=== PATIENT | male | born 1960 | race Caucasian/White ===

== ENCOUNTER 2018-08-19 16:00 | Emergency (ER) | payer BC ==
[2018-08-19 16:24] VITALS: BP 127/88
[2018-08-19] MEDS ORDERED: Tetan/Diph/Pertus SYR(Tdap)* 0.5 ML SYR(BOOSTRIX) use SYR IM ONE (16:28)
--- NOTE | 2018-08-19 16:39 | UC ---
Upper Extremity HPI - HPI Summary HPI Summary: cut right thumb on miter saw. last tetanus vaccine about 5 years ago. - History of Current Complaint Chief Complaint: UCUpperExtremity Stated Complaint: RT HAND/THUMB LAC Time Seen by Provider: 08/19/18 16:21 ?: No Onset/Duration: Sudden Onset Severity Initially: Moderate Severity Currently: Moderate Pain Intensity: 3 Alleviating Factor(s): Nothing Associated Signs And Symptoms: Positive: Negative - Risk Factors Non-Orthopedic Risk Factor: Negative DVT Risk Factors: Negative Septic Arthritis Risk Factor: Negative - Allergies/Home Medications Allergies/Adverse Reactions: Allergies Allergy/AdvReac Type Severity Reaction Status Date / Time No Known Allergies Allergy Verified 08/19/18 16:20 Home Medications: Home Medications Lisdexamfetamine Dimesylate [Vyvanse] 1 tab DAILY 08/19/18 [History Confirmed ] PMH/Surg Hx/FS Hx/Imm Hx Previously Healthy: Yes - Surgical History Surgical History: None - Social History Alcohol Use: Weekly Substance Use Type: None Smoking Status (MU): Never Smoked Tobacco - Immunization History Most Recent Tetanus Shot: UTD Review of Systems Constitutional: Negative Skin: Negative Eyes: Negative ENT: Negative Respiratory: Negative Cardiovascular: Negative Gastrointestinal: Negative Genitourinary: Negative Is Patient Immunocompromised?: No All Other Systems Reviewed And Are Negative: Yes Physical Exam Triage Information Reviewed: Yes Appearance: Well-Appearing Vital Signs: Initial Vital Signs Temp 36.6 C 08/19/18 16:20 Pulse 76 08/19/18 16:20 Resp 16 08/19/18 16:20 BP 127/88 08/19/18 16:20 Pulse Ox 99 08/19/18 16:20 Vital Signs Reviewed: Yes Eye Exam: Normal ENT Exam: Normal Neck exam: Normal Neck: Positive: Supple Skin: Positive: Other - superficial laceration of the right thumb - Additional Comments extremities right thumb with horizontal laceration at the DIP joint, full rom, finger well perfused , sensation normal Upper Extremity Course/Dx - Differential Dx/Diagnosis Differential Diagnosis/HQI/PQRI: Laceration - right thumb Provider Diagnoses: laceration right thumb Discharge - Sign-Out/Discharge Documenting (check all that apply): Patient Departure All imaging exams completed and their final reports reviewed: Yes - Discharge Plan Condition: Good Disposition: HOME Patient Education Materials: Finger Laceration (ED) Referrals: Brad Davey MD [Primary Care Provider] - Additional Instructions: superficial laceration , will need regular cleansing - Billing Disposition and Condition Condition: GOOD Disposition: Home
--- NOTE | 2018-08-19 17:09 | RAD ---
INDICATION: Laceration to right thumb with a miter saw COMPARISON: None TECHNIQUE: 3 views of the right thumb were obtained. FINDINGS: The bones are normal alignment. Joint spaces appear maintained. No fracture is seen. There is no hyperdense indicating is foreign body identified. IMPRESSION: Normal radiograph of the right thumb. If the patient's symptoms persist, follow-up imaging is recommended.
== END 2018-08-19 17:21 | disposition home or self-care (01) ==
LOC: UCCORT 16:00
DX: S61.011A Laceration without foreign body of right thumb without damage to nail, initial encounter (principal); W31.2XXA Contact with powered woodworking and forming machines, initial encounter; Y93.89 Activity, other specified; Y92.9 Unspecified place or not applicable
CPT/HCPCS: 90471; 90715; 99201; G0463